=== PATIENT | female | born 1960 | race Caucasian/White ===

== ENCOUNTER 2017-10-28 17:40 | Inpatient (IN) | payer BC ==
[2017-10-28] MEDS ORDERED: NALOXONE 0.4 MG/ML 1 ML VIAL IV PRN (18:32)
[2017-10-28] MEDS ORDERED: MORPHINE SULFATE 4 MG/ML SYRINGE IV PRN (18:32)
[2017-10-28] MEDS ORDERED: SODIUM CHLORIDE 0.9% 1,000 ML IV STA (18:32)
[2017-10-28] MEDS ORDERED: ACETAMINOPHEN TAB 325 MG TAB PO PRN (18:32)
--- NOTE | 2017-10-28 18:35 | ED ---
General Adult HPI - General Chief complaint: Abdominal Pain Stated complaint: appendicitis Time Seen by Provider: 10/28/17 18:06 Source: patient, RN notes reviewed Mode of arrival: ambulatory Limitations: no limitations - History of Present Illness Initial comments: Patient's a 57-year-old female presented to the emergency room by EMS transfer from [facility] for a appendicitis. Patient has had some discomfort for a few days but greatly increased last night at 9 PM. Went to the hospital this afternoon have a CT performed which didn't show evidence for acute appendicitis. Patient did have 14,000 white count. Patient's currently comfortable at this time was given Zosyn [facility]. Patient denies any recent fever, chills, shortness of breath, chest pain, back pain, abdominal pain , nausea or vomiting, numbness or tingling, headaches or visual changes, or any other complaints. - Related Data Home Medications Medication Instructions Recorded Confirmed Aspirin [Adult Low Dose Aspirin EC] 81 mg PO DAILY 10/28/17 10/28/17 Multivitamins, Thera [Multivitamin 1 tab PO DAILY 10/28/17 10/28/17 (formulary)] Naproxen Sodium [Aleve] 220 mg PO Q12HR PRN 10/28/17 10/28/17 [place]-3 Fatty Acids/Fish Oil [Fish 1 cap PO DAILY 10/28/17 10/28/17 Oil 1,000 mg Softgel] Allergies Allergy/AdvReac Type Severity Reaction Status Date / Time No Known Allergies Allergy Unverified 10/28/17 17:50 Review of Systems ROS Statement: Those systems with pertinent positive or pertinent negative responses have been documented in the HPI. ROS Other: All systems not noted in ROS Statement are negative. Past Medical History Past Medical History: No Reported History History of Any Multi-Drug Resistant Organisms: None Reported Past Surgical History: Hysterectomy Past Psychological History: No Psychological Hx Reported Smoking Status: Never smoker Past Alcohol Use History: None Reported Past Drug Use History: None Reported General Exam - General Exam Comments Initial Comments: General: The patient is awake and alert, in no distress, and does not appear acutely ill. Eye: Extra-ocular movements are intact. No nystagmus. There is normal conjunctiva bilaterally. No signs of icterus. Ears, nose, mouth and throat: There are moist mucous membranes and no oral lesions. Neck: The neck is supple, there is no tenderness or JVD. Cardiovascular: There is a regular rate and rhythm. No murmur, rub or gallop is appreciated. Respiratory: Lungs are clear to auscultation, respirations are non-labored, breath sounds are equal. No wheezes, stridor, rales, or rhonchi. Gastrointestinal: Soft on Palpation. Patient Does Have Mild Tenderness Upper Quadrants and Increased Tenderness in the Right Lower Quadrant on Exam. No Rebound. Mild right-sided CVA tenderness. Musculoskeletal: Normal ROM, no tenderness. Sensation intact. Strength 5/5. Pulses equal bilaterally 2+. Neurological: A&O x 3. CN II-XII intact, There are no obvious motor or sensory deficits. Coordination appears grossly intact. Speech is normal. Skin: Skin is warm and dry and no rashes or lesions are noted. Psychiatric: Cooperative, appropriate mood & affect, normal judgment. Limitations: no limitations Course Vital Signs 10/28/17 17:45 Temperature 98.3 F Pulse Rate 75 Respiratory 20 Rate Blood Pressure 135/64 O2 Sat by Pulse 99 Oximetry Medical Decision Making - Medical Decision Making Computed tomography scan from outpatient facility does show an etc. dilated up to proximal and 12 mm in diameter. Wall thickening. There is fluid within the lumen as well as calcified appendicolith. There is a periapical seal stranding. No abscess. His labs reviewed and does show 14,000 white count from out side facility. Case was discussed in detail with on-call surgeon Dr. Esparza who will admit the patient with plans go to the OR in the morning. Continue antibiotics at this time. Patient will remain nothing by mouth. Disposition Clinical Impression: Acute appendicitis Disposition: ADMITTED IP TO THIS HOSP Condition: Good Is patient prescribed a controlled substance at d/c from ED?: No Referrals: Niraj Stern MD [Primary Care Provider] - 1-2 days Time of Disposition: 18:31
[2017-10-28] MEDS ORDERED: ONDANSETRON 4 MG/2 ML VIAL IVP PRN (19:20)
[2017-10-28 19:48] VITALS: BMI 30.9
[2017-10-28 19:49] LABS: Basophils % (A) 0 %; Eosinophils # (A) 0.1 k/uL (0-0.7); Eosinophils % (A) 1 %; HCT 39.8 % (34.0-46.0); HGB 13.3 gm/dL (11.4-16.0); Lymphocytes % (A) 17 %; MCH 32.4 pg (25.0-35.0); MCHC 33.3 g/dL (31.0-37.0); MCV 97.2 fL (80.0-100.0); Monocytes # (A) 0.9 k/uL (0-1.0); Monocytes % (A) 7 %; Neutrophils # (A) 9.1 k/uL (1.3-7.7); Neutrophils % (A) 74 %; Platelet Count 235 k/uL (150-450); RDW 11.8 % (11.5-15.5); WBC 12.2 k/uL (3.8-10.6)
[2017-10-28 20:05] LABS: Albumin 4.4 g/dL (3.5-5.0); Calcium 9.3 mg/dL (8.4-10.2); Potassium 4.4 mmol/L (3.5-5.1); Total Bilirubin 1.8 mg/dL (0.2-1.3); Total Protein 7.5 g/dL (6.3-8.2)
[2017-10-29] MEDS: PIPERACILLIN-TAZOBACTAM 3.375 GM in DEXTROSE/WATER 1 50ML.BAG IVPB SCH ×3 (00:30→16:07)
[2017-10-29 06:44] LABS: Basophils % (A) 0 %; Eosinophils % (A) 0 %; HCT 36.7 % (34.0-46.0); HGB 11.9 gm/dL (11.4-16.0); Lymphocytes # (A) 1.3 k/uL (1.0-4.8); Lymphocytes % (A) 9 %; MCHC 32.5 g/dL (31.0-37.0); MCV 98.6 fL (80.0-100.0); Mean Platelet Volume 7.2; Monocytes % (A) 7 %; Neutrophils # (A) 12.3 k/uL (1.3-7.7); Neutrophils % (A) 83 %; Platelet Count 219 k/uL (150-450); RBC 3.72 m/uL (3.80-5.40); RDW 11.9 % (11.5-15.5); WBC 14.9 k/uL (3.8-10.6)
[2017-10-29 06:54] LABS: Albumin 3.6 g/dL (3.5-5.0); Calcium 8.7 mg/dL (8.4-10.2); Potassium 4.6 mmol/L (3.5-5.1); Total Bilirubin 2.1 mg/dL (0.2-1.3); Total Protein 6.1 g/dL (6.3-8.2)
[2017-10-29] MEDS ORDERED: ONDANSETRON 4 MG/2 ML VIAL IVP ONE ×2 (07:40→09:40)
[2017-10-29] MEDS ORDERED: NEOSTIGMINE 1 MG/ML 10 ML VIAL ONE (08:10)
[2017-10-29] MEDS ORDERED: GLYCOPYRROLATE 0.2 MG/ML 2 ML VIAL ONE (08:10)
[2017-10-29] MEDS ORDERED: ROCURONIUM BROMIDE 10 MG/ML 10 ML VIAL IV ONE (08:10)
[2017-10-29] MEDS ORDERED: DEXAMETHASONE SOD PHOS (MDV) 100 MG/10 ML VIAL ONE (08:10)
[2017-10-29] MEDS ORDERED: PROPOFOL 10 MG/ML 20 ML VIAL IV ONE (08:10)
[2017-10-29] MEDS ORDERED: fentaNYL (PF) 50 MCG/ML 2 ML AMP ONE (08:10)
[2017-10-29] MEDS ORDERED: MIDAZOLAM 2 MG/2 ML VIAL ONE (08:10)
[2017-10-29] MEDS ORDERED: IV FLUID CONTINUATION 1,000 ML IV ONE (08:10)
[2017-10-29] MEDS ORDERED: LIDOCAINE 1% INJ 10MG/ML (20 ML MDV) ONE (08:10)
[2017-10-29] MEDS ORDERED: BUPIVACAIN-EPI 0.25%-1:200,000 30 ML VIAL SQ ONE (08:29)
[2017-10-29] MEDS ORDERED: LACTATED RINGERS 1,000 ML IV ONE ×2 (08:46→08:51)
[2017-10-29] MEDS ORDERED: traMADol 50 MG TAB PO PRN (08:51)
[2017-10-29] MEDS ORDERED: HYDROcodone/APAP 5-325MG 1 EACH TAB PO PRN (08:51)
[2017-10-29] MEDS ORDERED: HYDROmorphone 1 MG/ML 1 ML SYRINGE IVP PRN (08:51)
[2017-10-29] MEDS ORDERED: ONDANSETRON 4 MG/2 ML VIAL IVP PRN (08:51)
[2017-10-29] MEDS ORDERED: NALOXONE 0.4 MG/ML 1 ML VIAL IV PRN (08:51)
[2017-10-29] MEDS ORDERED: fentaNYL (PF) 50 MCG/ML 2 ML AMP IVP ONE ×2 (09:14→09:29)
--- NOTE | 2017-10-29 09:54 | P.OP ---
Date of Procedure: 10/29/17 Preoperative Diagnosis: Acute appendicitis Postoperative Diagnosis: Acute appendicitis Procedure(s) Performed: Laparoscopic appendectomy Anesthesia: AUGUSTIN Surgeon: Luis Esparza Estimated Blood Loss (ml): 5 Pathology: other (Appendix) Condition: stable Disposition: PACU Description of Procedure: The patient's placed on the operating table in the supine position. The patient received general anesthesia. The abdomen was prepped and draped in the usual sterile fashion. The skin was anesthetized 1% local Xylocaine at the trocar sites. Using an 11 blade the skin was incised at the umbilicus. The umbilicus was grasped with a Baxter clamp and then a Veress needle was placed into the peritoneal cavity. Position of the Veress needle was confirmed with positive drop test. After adequate insufflation a 5 mm trocar was placed into the peritoneal cavity. The abdomen was further insufflated. And then the laparoscope was placed in the peritoneal cavity. Next a 5 mm trocar was placed in the midline suprapubic position. And then a 10 mm trocar was placed in the midline epigastric position. The patient was rotated with the right side up and in Trendelenburg. The appendix was visualized. The appendix appeared to be inflamed. There was evidence of patchy necrosis. The appendix was grasped and then using the Harmonic scissors the mesoappendix was divided. A PDS Endoloop was then placed around the base of the appendix. And then the appendix was divided using Harmonic scissors. The appendix was placed into an Endo Catch and brought out through the 10 mm trocar site. The abdomen was irrigated. There is no bleeding seen. The trochars withdrawn. The skin was closed interrupted 3-0 Monocryl suture. Dermabond dressing was applied. Patient was sent to recovery room in stable condition.
[2017-10-29] MEDS: KETOROLAC 30 MG/ML 1 ML VIAL IVP SCH ×3 (14:15→21:01)
--- NOTE | 2017-10-29 15:54 | P.CONS ---
History of Present Illness - Reason for Consult Consult date: 10/29/17 Medical management - Chief Complaint Abdominal pain and acute appendicitis - History of Present Illness Patient is a 57-year-old female without significant past history except osteoarthritis was initially presented to [facility] with complaints of right lower quadrant abdominal pain which has been getting worse for the past 1 week. Patient had worsening symptoms since 9 PM on 10/27/2017 and presented to [facility] initially. CT of abdomen pelvis today shows some evidence of acute appendicitis. Patient was subsequently transferred to [facility] for further evaluation by surgery. Patient was given a dose of Zosyn at [facility]. Patient denies any recent fever, chills, shortness of breath, chest pain, back pain, numbness or tingling, headaches or visual changes, or any other complaints. Patient did have diarrhea one week prior to these symptoms. Diarrhea has resolved about one week ago. Laboratory data and imaging studies from [facility] were reviewed. Review of Systems Constitutional: Patient denies any fever or chills . No generalized weakness or weight loss. Abdomen: Patient denied nausea vomiting and diarrhea and abdominal pain. Cardiovascular: Patient denies any chest pain or short of breath no palpitations. Respiratory: patient denied any cough is from production. No shortness of breath Neurologic: Patient denied any numbness or tingling headache. Musculoskeletal: Patient denies any complaints of joint swelling or deformity. Skin: Negative Psychiatric: Negative Endocrine: No heat or cold intolerance. No recent weight gain. Genitourinary: No dysuria or hematuria. All other 14 point ROS negative except the aboves Past Medical History Past Medical History: No Reported History History of Any Multi-Drug Resistant Organisms: None Reported Past Surgical History: Hysterectomy Additional Past Surgical History / Comment(s): Finger nail removed. Past Anesthesia/Blood Transfusion Reactions: No Reported Reaction Past Psychological History: No Psychological Hx Reported Smoking Status: Never smoker Past Alcohol Use History: None Reported Past Drug Use History: None Reported - Past Family History Father Family Medical History: Diabetes Mellitus Additional Family Medical History / Comment(s): Heart attack with stents. Mother Family Medical History: Cancer Additional Family Medical History / Comment(s): Colon cancer Medications and Allergies Home Medications Medication Instructions Recorded Confirmed Type Aspirin [Adult Low Dose Aspirin EC] 81 mg PO DAILY 10/28/17 10/28/17 History Multivitamins, Thera [Multivitamin 1 tab PO DAILY 10/28/17 10/28/17 History (formulary)] Naproxen Sodium [Aleve] 220 mg PO Q12HR PRN 10/28/17 10/28/17 History [place]-3 Fatty Acids/Fish Oil [Fish 1 cap PO DAILY 10/28/17 10/28/17 History Oil 1,000 mg Softgel] Allergies Allergy/AdvReac Type Severity Reaction Status Date / Time No Known Allergies Allergy Unverified 10/28/17 19:49 Physical Exam Vitals: Vital Signs Temp Pulse Pulse Pulse Pulse Resp BP 10/29/17 14:10 97.7 F 91 17 10/29/17 12:53 79 16 10/29/17 11:45 83 16 10/29/17 11:15 84 16 10/29/17 10:45 80 14 10/29/17 10:30 82 14 10/29/17 10:15 77 14 10/29/17 10:00 99.5 F 76 14 10/29/17 09:35 74 16 10/29/17 09:20 72 16 10/29/17 09:05 110 H 16 10/29/17 08:54 97.0 F L 64 18 10/29/17 07:21 98.9 F 86 18 10/29/17 07:00 98.9 F 86 10/29/17 00:00 98.6 F 89 18 10/28/17 20:02 104 H 18 10/28/17 19:00 98.3 F 83 20 122/56 10/28/17 18:47 97.9 F 104 H 16 10/28/17 17:45 98.3 F 75 20 135/64 BP Pulse Ox 10/29/17 14:10 107/67 94 L 10/29/17 12:53 103/68 97 10/29/17 11:45 101/63 97 10/29/17 11:15 102/67 95 10/29/17 10:45 91/57 97 10/29/17 10:30 99/63 98 10/29/17 10:15 94/60 98 10/29/17 10:00 92/57 98 10/29/17 09:35 99/51 97 10/29/17 09:20 114/57 100 10/29/17 09:05 102/58 97 10/29/17 08:54 120/58 94 L 10/29/17 07:21 102/66 96 10/29/17 07:00 102/66 96 10/29/17 00:00 103/65 97 10/28/17 20:02 10/28/17 19:00 99 10/28/17 18:47 151/85 10/28/17 17:45 99 Intake and Output 10/29/17 10/29/17 10/29/17 06:59 14:59 22:59 Intake Total 0 1100 Output Total 5 Balance 0 1095 Intake: IV 1100 Oral 0 Output: Estimated Blood Loss 5 Other: Voiding Method Toilet # Voids 1 1 # Bowel Movements 1 PHYSICAL EXAMINATION: Patient is lying in the bed comfortably, no acute distress, awake alert and oriented.. HEENT: Normocephalic. Neck is supple. Pupils reactive. Nostrils clear. Oral cavity is moist. Ears reveal no drainage. Neck reveals no JVD, carotid bruits, or thyromegaly. CHEST EXAMINATION: Trachea is central. Symmetrical expansion. Lung garvey clear to auscultation and percussion. CARDIAC: Normal S1, S2 with no gallops. No murmurs ABDOMEN: Soft. Bowel sounds normal. No organomegaly. No abdominal bruits. Extremities: reveal no edema. No clubbing or cyanosis Neurologically awake, alert, oriented x3 with well-coordinated movements. No focal deficits noted Skin: No rash or skin lesions. Psychiatric: Coperative. Nonsuicidal Musculoskeletal: No joint swelling or deformity. Normal range of motion. Results CBC & Chem 7: 10/29/17 06:14 10/29/17 06:14 Labs: Abnormal Lab Results - Last 24 Hours (Table) 10/28/17 10/28/17 10/29/17 Range/Units 19:30 19:30 06:14 WBC 12.2 H 14.9 H (3.8-10.6) k/uL RBC 3.72 L (3.80-5.40) m/uL Neutrophils # 9.1 H 12.3 H (1.3-7.7) k/uL Creatinine (0.52-1.04) mg/dL Glucose 103 H (74-99) mg/dL Total Bilirubin 1.8 H (0.2-1.3) mg/dL Total Protein (6.3-8.2) g/dL 10/29/17 Range/Units 06:14 WBC (3.8-10.6) k/uL RBC (3.80-5.40) m/uL Neutrophils # (1.3-7.7) k/uL Creatinine 1.18 H (0.52-1.04) mg/dL Glucose 112 H (74-99) mg/dL Total Bilirubin 2.1 H (0.2-1.3) mg/dL Total Protein 6.1 L (6.3-8.2) g/dL Assessment and Plan Assessment: Acute appendicitis. Status post laparoscopic appendectomy Osteoarthritis DVT prophylaxis with Lovenox. Plan: Patient will be continued on pain medications and bowel regimen. Continue with IV fluids and antibiotics in the form of Zosyn. Follow up closely and further recommendations based on the clinical course. Discussed with her at bedside in detail. Thank you for your consult Time with Patient: Greater than 30
[2017-10-29] MEDS: ENOXAPARIN 40 MG/0.4 ML SYRINGE SQ SCH (16:07)
--- NOTE | 2017-10-29 22:56 | P.CONS ---
History of Present Illness - Reason for Consult Consult date: 10/29/17 - Chief Complaint Abdominal pain - History of Present Illness Pleasant 57-year-old female relates to a history only of nephrolithiasis and 2 pregnancies relates that she's otherwise been healthy but several days before admission developed crampy abdominal pain. She also had a bout of significant diarrhea and felt quite poorly. She modified her diet a bit and continue to try to go to work. On the day of presentation to the emergency center by her home she got up and went to work. [place] very poorly. She had significant abdominal discomfort although she relates that is not sharp or stabbing but it was progressive. He has noted she has a history of nephrolithiasis and is used to a certain type of intra-abdominal pain. The silver was quite different. However she did notice a symptoms of an infection and she started to have fever and chills in counseling presented to her local emergency center. Because of her significant right lower quadrant tenderness CT scanning was performed showing evidence of abnormal appendix but no josesito rupture. Because of suspected appendicitis she was transferred to our facility. She was seen by surgery and is now status post appendectomy with visualized evidence of ischemic change to the appendix at the time of its removal. She is feeling somewhat better. She is actually had a bowel movement. Her diet being advanced. She's having no further fevers and chills. Lipedema discharge tomorrow but a leukocytosis was noted. Review of Systems HEENT:Denies headache or acute visual change. Denies sinus or mouth discomforts. Denies neck stiffness or pain. Denies significant oral cavity pain. Denies difficulty on swallowing. Lungs: Denies significant shortness of breath, cough, sputum production, or hemoptysis. Cardiovascular: Denies significant shortness of breath, chest pain, chest wall pain, orthopnea, dyspnea on exertion, syncope Gastrointestinal: As per the HPI Musculoskeletal: denies significant myalgias or arthralgias. No new joint swelling. Denies new back pain. Skin: Denies new rash or lesions. No new ulcers or wounds are related.. Neuro: Denies headache or visual change. Denies any new onset weakness or difficulty with ambulation. Denies falls or seizures. Psychiatric:Denies anxiety or depression. Endocrine: Denies significant fatigue, denies significant weight loss or weight gain. Past Medical History Past Medical History: No Reported History Additional Past Medical History / Comment(s): Nephrolithiasis denies diabetes hypertension heart disease or other medical illnesses History of Any Multi-Drug Resistant Organisms: None Reported Past Surgical History: Hysterectomy Additional Past Surgical History / Comment(s): Finger nail removed. Past Anesthesia/Blood Transfusion Reactions: No Reported Reaction Past Psychological History: No Psychological Hx Reported Additional Psychological History / Comment(s): lives with her . Employed as a outreach and education social worker. Adult children live out of town. Elderly parents live next door and suffer from dementia and required care. Lifelong nonsmoker. No alcohol or recreational drug use. No experience. No recent international travel Smoking Status: Never smoker Past Alcohol Use History: None Reported Past Drug Use History: None Reported - Past Family History Father Family Medical History: Diabetes Mellitus Additional Family Medical History / Comment(s): Heart attack with stents. Mother Family Medical History: Cancer Additional Family Medical History / Comment(s): Colon cancer Medications and Allergies Home Medications and Allergies Comment(s): Current Medications Acetaminophen (Tylenol Tab) 650 mg PO Q6HR PRN PRN Reason: Mild Pain or Fever > 100.5 Last Admin: 10/28/17 20:14 Dose: 650 mg Hydrocodone Bitart/Acetaminophen ([place] 5-325) 2 each PO Q6HR PRN PRN Reason: Moderate to Severe Pain Enoxaparin Sodium (Lovenox) 40 mg SQ DAILY [facility] Last Admin: 10/29/17 16:07 Dose: 40 mg Hydromorphone HCl (Dilaudid) 0.5 mg IVP Q3HR PRN PRN Reason: Moderate to Severe Pain Piperacillin/Tazobactam/ (Dextrose 3.375 gm/ IV Solution) 50 mls @ 12.5 mls/hr IVPB Q8HR [facility] Last Admin: 10/29/17 16:07 Dose: 12.5 mls/hr Ketorolac Tromethamine (Toradol) 30 mg IVP Q6H [facility] Stop: 10/31/17 03:01 Last Admin: 10/29/17 21:01 Dose: 30 mg Metoclopramide HCl (Reglan) 10 mg IVP Q6H PRN PRN Reason: Nausea And Vomiting Morphine Sulfate (Morphine Sulfate (Inj)) 4 mg IV Q4HR PRN PRN Reason: Severe Pain Last Admin: 10/29/17 00:30 Dose: 4 mg Naloxone HCl (Narcan) 0.2 mg IV Q2M PRN PRN Reason: Opioid Reversal Ondansetron HCl (Zofran) 4 mg IVP Q8HR PRN PRN Reason: Nausea And Vomiting Tramadol HCl (Ultram) 50 mg PO Q6H PRN PRN Reason: Mild to Moderate Pain Home Medications Medication Instructions Recorded Confirmed Type Aspirin [Adult Low Dose Aspirin EC] 81 mg PO DAILY 10/28/17 10/28/17 History Multivitamins, Thera [Multivitamin 1 tab PO DAILY 10/28/17 10/28/17 History (formulary)] Naproxen Sodium [Aleve] 220 mg PO Q12HR PRN 10/28/17 10/28/17 History [place]-3 Fatty Acids/Fish Oil [Fish 1 cap PO DAILY 10/28/17 10/28/17 History Oil 1,000 mg Softgel] Allergies Allergy/AdvReac Type Severity Reaction Status Date / Time No Known Allergies Allergy Unverified 10/28/17 19:49 Physical Exam Vitals: Vital Signs Temp Pulse Pulse Pulse Resp BP Pulse Ox 10/29/17 14:10 97.7 F 91 17 107/67 94 L 10/29/17 12:53 79 16 103/68 97 10/29/17 11:45 83 16 101/63 97 10/29/17 11:15 84 16 102/67 95 10/29/17 10:45 80 14 91/57 97 10/29/17 10:30 82 14 99/63 98 10/29/17 10:15 77 14 94/60 98 10/29/17 10:00 99.5 F 76 14 92/57 98 10/29/17 09:35 74 16 99/51 97 10/29/17 09:20 72 16 114/57 100 10/29/17 09:05 110 H 16 102/58 97 10/29/17 08:54 97.0 F L 64 18 120/58 94 L 10/29/17 07:21 98.9 F 86 18 102/66 96 10/29/17 07:00 98.9 F 86 102/66 96 10/29/17 00:00 98.6 F 89 18 103/65 97 Intake and Output 10/29/17 10/29/17 10/29/17 06:59 14:59 22:59 Intake Total 0 1100 Output Total 5 Balance 0 1095 Intake: IV 1100 Oral 0 Output: Estimated Blood Loss 5 Other: Voiding Method Toilet # Voids 1 1 1 # Bowel Movements 1 Pleasant 57-year-old woman not in distress HEENT: Anicteric conjunctiva are pink and moist nasal mucosa grossly intact without significant lesions, there is no thrush. Neck: The neck is supple without significant lymphadenopathy or thyromegaly. Lungs: Good bilateral air entry without significant crackles or wheezing. There is no significant bronchial sounds. There is no egophony or dullness. Heart: Regular rate and rhythm with an audible S1-S2, no S3 no S4. There is no significant murmur click or rub, PMI was nondisplaced. Abdomen: Positive bowel sounds , the abdomen is soft but continues to have significant tenderness especially in the right lower quadrant, the abdomen is not rigid, some rebound tenderness is still noted. No hepatosplenomegaly is noted Extremities: The upper extremities have excellent pulses they are symmetric, no significant petechiae or telangiectasia. No splinter hemorrhages were noted. The lower extremities are free from significant edema. The peripheral pulses were 2+ and symmetric. Neuro: Awake alert oriented to person place and time. There are no acute new gross focal sensory motor deficits. Results Results: Laboratory Results WBC 14.9 k/uL (3.8-10.6) H 10/29/17 06:14 RBC 3.72 m/uL (3.80-5.40) L 10/29/17 06:14 Hgb 11.9 gm/dL (11.4-16.0) 10/29/17 06:14 Hct 36.7 % (34.0-46.0) 10/29/17 06:14 MCV 98.6 fL (80.0-100.0) 10/29/17 06:14 MCH 32.0 pg (25.0-35.0) 10/29/17 06:14 MCHC 32.5 g/dL (31.0-37.0) 10/29/17 06:14 RDW 11.9 % (11.5-15.5) 10/29/17 06:14 Plt Count 219 k/uL (150-450) 10/29/17 06:14 Neutrophils % 83 % 10/29/17 06:14 Lymphocytes % 9 % 10/29/17 06:14 Monocytes % 7 % 10/29/17 06:14 Eosinophils % 0 % 10/29/17 06:14 Basophils % 0 % 10/29/17 06:14 Neutrophils # 12.3 k/uL (1.3-7.7) H 10/29/17 06:14 Lymphocytes # 1.3 k/uL (1.0-4.8) 10/29/17 06:14 Monocytes # 1.0 k/uL (0-1.0) 10/29/17 06:14 Eosinophils # 0.0 k/uL (0-0.7) 10/29/17 06:14 Basophils # 0.0 k/uL (0-0.2) 10/29/17 06:14 Sodium 140 mmol/L (137-145) 10/29/17 06:14 Potassium 4.6 mmol/L (3.5-5.1) 10/29/17 06:14 Chloride 106 mmol/L (98-107) 10/29/17 06:14 Carbon Dioxide 27 mmol/L (22-30) 10/29/17 06:14 Anion Gap 7 mmol/L 10/29/17 06:14 BUN 15 mg/dL (7-17) 10/29/17 06:14 Creatinine 1.18 mg/dL (0.52-1.04) H 10/29/17 06:14 Est GFR (CKD-EPI)AfAm 60 (>60 ml/min/1.73 sqM) 10/29/17 06:14 Est GFR (CKD-EPI)NonAf 52 (>60 ml/min/1.73 sqM) 10/29/17 06:14 Glucose 112 mg/dL (74-99) H 10/29/17 06:14 Calcium 8.7 mg/dL (8.4-10.2) 10/29/17 06:14 Total Bilirubin 2.1 mg/dL (0.2-1.3) H 10/29/17 06:14 AST 22 U/L (14-36) 10/29/17 06:14 ALT 26 U/L (9-52) 10/29/17 06:14 Alkaline Phosphatase 41 U/L (38-126) 10/29/17 06:14 Total Protein 6.1 g/dL (6.3-8.2) L 10/29/17 06:14 Albumin 3.6 g/dL (3.5-5.0) 10/29/17 06:14 CBC & Chem 7: 10/29/17 06:14 10/29/17 06:14 Labs: Abnormal Lab Results - Last 24 Hours (Table) 10/29/17 10/29/17 Range/Units 06:14 06:14 WBC 14.9 H (3.8-10.6) k/uL RBC 3.72 L (3.80-5.40) m/uL Neutrophils # 12.3 H (1.3-7.7) k/uL Creatinine 1.18 H (0.52-1.04) mg/dL Glucose 112 H (74-99) mg/dL Total Bilirubin 2.1 H (0.2-1.3) mg/dL Total Protein 6.1 L (6.3-8.2) g/dL Assessment and Plan (1) Acute appendicitis Narrative/Plan: 57-year-old female presents to her local hospital was negative and abdominal pain and was transferred to our facility with abnormal computed tomography scan and evaluation for surgical intervention. She was seen by surgery and taken to the operative room this morning for the elective appendectomy. Patient tolerated the surgery well and started to show improvement. Ischemic changes was noted to the appendix the time of its removal. The patient fortunately is now showing marked improvement but did have a leukocytosis which is not unexpected given the acuity of her symptoms. She is now had surgical intervention and receiving appropriate antibiotic therapy with Zosyn. If she is considerably improved in the morning her white count has shown improvement she may be discharged home if she is tolerating diet to complete a course of Augmentin at that time. Current Visit: Yes Status: Acute Code(s): K35.80 - UNSPECIFIED ACUTE APPENDICITIS SNOMED Code(s): 26716295
[2017-10-30] MEDS: PIPERACILLIN-TAZOBACTAM 3.375 GM in DEXTROSE/WATER 1 50ML.BAG IVPB SCH ×3 (00:01→14:53)
[2017-10-30] MEDS: KETOROLAC 30 MG/ML 1 ML VIAL IVP SCH ×4 (02:02→20:23)
[2017-10-30 07:51] LABS: Basophils % (A) 0 %; Eosinophils % (A) 0 %; HGB 11.6 gm/dL (11.4-16.0); Lymphocytes # (A) 1.5 k/uL (1.0-4.8); Lymphocytes % (A) 14 %; MCH 32.4 pg (25.0-35.0); MCHC 32.2 g/dL (31.0-37.0); MCV 100.8 fL (80.0-100.0); Mean Platelet Volume 7.3; Monocytes # (A) 0.5 k/uL (0-1.0); Monocytes % (A) 5 %; Neutrophils # (A) 8.4 k/uL (1.3-7.7); Neutrophils % (A) 80 %; Platelet Count 176 k/uL (150-450); RBC 3.57 m/uL (3.80-5.40); WBC 10.6 k/uL (3.8-10.6)
[2017-10-30] MEDS: ENOXAPARIN 40 MG/0.4 ML SYRINGE SQ SCH (08:12)
--- NOTE | 2017-10-30 11:39 | P.PN ---
Progress Note - Text Progress Note Date: 10/30/17 Patient's postoperative day 1 from laparoscopic appendectomy for acute appendicitis. She was doing well overnight. However this morning she has nausea. On exam her vital signs are stable. Her abdomen soft. Incision site is clean dry tach. Status post laparoscopic appendectomy for acute appendicitis. Patient did receive IV antibiotics. We dysphagia discharged home in the a.m.
[2017-10-30 15:07] VITALS: RESP 16
[2017-10-30] MEDS: METOCLOPRAMIDE 5 MG/ML 2 ML VIAL IVP PRN ×2 (16:57→22:53)
[2017-10-31] MEDS: PIPERACILLIN-TAZOBACTAM 3.375 GM in DEXTROSE/WATER 1 50ML.BAG IVPB SCH ×2 (02:12→09:01)
[2017-10-31] MEDS: KETOROLAC 30 MG/ML 1 ML VIAL IVP SCH (03:25)
[2017-10-31] MEDS: METOCLOPRAMIDE 5 MG/ML 2 ML VIAL IVP PRN (04:43)
[2017-10-31] MEDS: ENOXAPARIN 40 MG/0.4 ML SYRINGE SQ SCH (08:58)
--- NOTE | 2017-10-31 09:22 | P.DS ---
Providers Date of admission: 10/29/17 10:55 Expected date of discharge: 10/31/17 Attending physician: Luis Esparza Consults: 10/29/17 08:51 Consult Physician Routine Consulting Provider: Doe Pugh Consult Reason/Comments: medical manage Do you want consulting provider notified?: Yes 10/29/17 08:56 Consult Physician Routine Consulting Provider: Jarvis Smith Consult Reason/Comments: Necrotic appendicitis Do you want consulting provider notified?: Yes Primary care physician: [facility] Course: 57-year-old female who was transferred from [place] via EMS system for persistent right upper and lower quadrant abdominal pain. CAT scan was performed showing evidence of an abnormal appendix but no josesito rupture. Was noted to have an elevated white count of 14. Also stated that she was experiencing loose stools. Denied any fever chills. Given the above clinical presentation patient was seen by surgery underwent October 29 laparoscopic appendectomy for acute appendicitis Infectious disease consultation was obtained patient was seen by Dr. Burt with recommendations patient was placed on Zosyn the white count on the was 10.6 postop continue to experience frequent watery loose stools stool for C. diff was obtained was negative Date of discharge patient was up ambulatory on the unit denied chest pain dizziness lightheadedness shortness of breath surgical dressing sites were dry reported no nausea vomiting pain medication effective for pain control Impression discharge diagnoses Present on admission right upper quadrant abdominal pain suspect due to a cute appendicitis Computed tomography scan abdomen pelvis showed abnormal appendix Present on admission leukocytosis Status post October 29 laparoscopic appendectomy for acute appendicitis Frequent loose stooling with C. diff negative The above impression and plan of care have been discussed and directed by signing physician. Edith Partida nurse practitioner acting as scribe for signing physician. Patient Condition at Discharge: Good Plan - Discharge Summary Discharge Rx Participant: Yes New Discharge Prescriptions: New Amoxic-Pot Clav 875-125Mg [Augmentin 875-125] 1 tab PO Q12HR #14 tablet Acetaminophen Tab [Tylenol] 650 mg PO Q6HR PRN tab PRN Reason: Mild Pain Or Fever > 100.5 HYDROcodone/APAP 5-325MG [Taylor 5-325] 1 each PO Q6HR PRN #12 tab PRN Reason: Moderate To Severe Pain Continue [place]-3 Fatty Acids/Fish Oil [Fish Oil 1,000 mg Softgel] 1 cap PO DAILY Aspirin [Adult Low Dose Aspirin EC] 81 mg PO DAILY No Action Naproxen Sodium [Aleve] 220 mg PO Q12HR PRN PRN Reason: Pain Multivitamins, Thera [Multivitamin (formulary)] 1 tab PO DAILY Discharge Medication List Aspirin [Adult Low Dose Aspirin EC] 81 mg PO DAILY 10/28/17 [History] Multivitamins, Thera [Multivitamin (formulary)] 1 tab PO DAILY 10/28/17 [History ] Naproxen Sodium [Aleve] 220 mg PO Q12HR PRN 10/28/17 [History] [place]-3 Fatty Acids/Fish Oil [Fish Oil 1,000 mg Softgel] 1 cap PO DAILY [History] Amoxic-Pot Clav 875-125Mg [Augmentin 875-125] 1 tab PO Q12HR #14 tablet [Rx] Acetaminophen Tab [Tylenol] 650 mg PO Q6HR PRN tab 10/31/17 [Rx] HYDROcodone/APAP 5-325MG [Taylor 5-325] 1 each PO Q6HR PRN #12 tab 10/31/17 [Rx] Follow up Appointment(s)/Referral(s): Niraj Stern MD [Primary Care Provider] - 11/02/17 3:00 pm (Appointment set in [place] office [address] [address] ) Luis Esparza MD [STAFF PHYSICIAN] - 11/03/17 3:10 pm Patient Instructions/Handouts: Laparoscopic Appendectomy (DC) Activity/Diet/Wound Care/Special Instructions: No tub bath for six weeks. Shower daily. No lifting over 10 pounds for the next 4 weeks. May return to work in one week May use ice packs to surgical site. No driving while taking narcotic for pain. Discharge Disposition: HOME SELF-CARE
--- NOTE | 2017-10-31 09:56 | P.PN ---
Subjective Progress Note Date: 10/30/17 Principal diagnosis: Acute appendicitis Patient is a 57-year-old female without significant past history except osteoarthritis was initially presented to [facility] with complaints of right lower quadrant abdominal pain which has been getting worse for the past 1 week. Patient had worsening symptoms since 9 PM on 10/27/2017 and presented to [facility] initially. CT of abdomen pelvis today shows some evidence of acute appendicitis. Patient was subsequently transferred to [facility] for further evaluation by surgery. Patient was given a dose of Zosyn at [facility]. Patient denies any recent fever, chills, shortness of breath, chest pain, back pain, numbness or tingling, headaches or visual changes, or any other complaints. Patient did have diarrhea one week prior to these symptoms. Diarrhea has resolved about one week ago. Laboratory data and imaging studies from [facility] were reviewed. 10/30/2017 Patient is complaining of nausea this morning. Otherwise tolerating liquid data advance as tolerated. Patient did have a small bowel movement. No fever no chills. Leukocytosis is improving. Anticipate discharge next 24 hours with more clinical improvement. Current medications reviewed Objective - Vital Signs Vital signs: Vital Signs Temp 98.2 F 10/31/17 07:00 Pulse 70 10/31/17 07:00 Resp 16 10/31/17 07:00 BP 174/98 10/31/17 07:00 Pulse Ox 97 10/31/17 07:00 Intake & Output 10/30/17 10/31/17 10/31/17 18:59 06:59 18:59 Intake Total 100 137 Balance 100 137 Intake: Oral 100 137 Other: Voiding Method Toilet # Voids 2 2 - Exam PHYSICAL EXAMINATION: Patient is lying in the bed comfortably, no acute distress, awake alert and oriented.. HEENT: Normocephalic. Neck is supple. Pupils reactive. Nostrils clear. Oral cavity is moist. Ears reveal no drainage. Neck reveals no JVD, carotid bruits, or thyromegaly. CHEST EXAMINATION: Trachea is central. Symmetrical expansion. Lung garvey clear to auscultation and percussion. CARDIAC: Normal S1, S2 with no gallops. No murmurs ABDOMEN: Soft. Mild tenderness at the surgical site. Bowel sounds normal. No organomegaly. No abdominal bruits. Extremities: reveal no edema. No clubbing or cyanosis Neurologically awake, alert, oriented x3 with well-coordinated movements. No focal deficits noted Skin: No rash or skin lesions. Psychiatric: Coperative. Nonsuicidal Musculoskeletal: No joint swelling or deformity. Normal range of motion. - Labs CBC & Chem 7: 10/30/17 06:59 10/29/17 06:14 Assessment and Plan Assessment: Acute appendicitis. Status post laparoscopic appendectomy Osteoarthritis DVT prophylaxis with Lovenox. Plan: Patient will be continued on pain medications and bowel regimen. Continue with IV fluids and antibiotics in the form of Zosyn. Follow up closely and further recommendations based on the clinical course. Discussed with her at bedside in detail. Thank you for your consult Time with Patient: Greater than 30
--- NOTE | 2017-10-31 16:10 | P.PN ---
Subjective Progress Note Date: 10/31/17 Principal diagnosis: Acute appendicitis Patient is a 57-year-old female without significant past history except osteoarthritis was initially presented to [facility] with complaints of right lower quadrant abdominal pain which has been getting worse for the past 1 week. Patient had worsening symptoms since 9 PM on 10/27/2017 and presented to [facility] initially. CT of abdomen pelvis today shows some evidence of acute appendicitis. Patient was subsequently transferred to [facility] for further evaluation by surgery. Patient was given a dose of Zosyn at [facility]. Patient denies any recent fever, chills, shortness of breath, chest pain, back pain, numbness or tingling, headaches or visual changes, or any other complaints. Patient did have diarrhea one week prior to these symptoms. Diarrhea has resolved about one week ago. Laboratory data and imaging studies from [facility] were reviewed. 10/30/2017 Patient is complaining of nausea this morning. Otherwise tolerating liquid data advance as tolerated. Patient did have a small bowel movement. No fever no chills. Leukocytosis is improving. Anticipate discharge next 24 hours with more clinical improvement. 10/31/2017 Patient denied any new complaints today. Abdominal soreness is much improved. Patient did have bowel movement. No fever no chills. No other acute overnight issues. Patient is stable to be discharged home. Discharge medications a consultation was done. Current medications reviewed Objective - Vital Signs Vital signs: Vital Signs Temp 98.2 F 10/31/17 07:00 Pulse 70 10/31/17 07:00 Resp 16 10/31/17 07:00 BP 174/98 10/31/17 07:00 Pulse Ox 97 10/31/17 07:00 Intake & Output 10/30/17 10/31/17 10/31/17 18:59 06:59 18:59 Intake Total 100 137 Balance 100 137 Intake: Oral 100 137 Other: Voiding Method Toilet # Voids 2 2 - Exam PHYSICAL EXAMINATION: Patient is lying in the bed comfortably, no acute distress, awake alert and oriented.. HEENT: Normocephalic. Neck is supple. Pupils reactive. Nostrils clear. Oral cavity is moist. Ears reveal no drainage. Neck reveals no JVD, carotid bruits, or thyromegaly. CHEST EXAMINATION: Trachea is central. Symmetrical expansion. Lung garvey clear to auscultation and percussion. CARDIAC: Normal S1, S2 with no gallops. No murmurs ABDOMEN: Soft. Mild tenderness at the surgical site. Bowel sounds normal. No organomegaly. No abdominal bruits. Extremities: reveal no edema. No clubbing or cyanosis Neurologically awake, alert, oriented x3 with well-coordinated movements. No focal deficits noted Skin: No rash or skin lesions. Psychiatric: Coperative. Nonsuicidal Musculoskeletal: No joint swelling or deformity. Normal range of motion. - Labs CBC & Chem 7: 10/30/17 06:59 10/29/17 06:14 Assessment and Plan Assessment: Acute appendicitis. Status post laparoscopic appendectomy Osteoarthritis DVT prophylaxis with Lovenox. Plan: Patient will be continued on pain medications and bowel regimen. Follow-up with primary care physician and surgery at an outpatient.. Follow up closely and further recommendations based on the clinical course. Discussed with her at bedside in detail. Time with Patient: Greater than 30
[2017-11-01 07:18] VITALS: BP 123/71; PULSE 82; TEMP 97.8
== END 2017-10-31 12:35 | disposition home or self-care (01) | DRG 343 ==
LOC: EC 17:40 → 6PED 18:47 → OBSVTOIN 10-29 10:55 → 3SUR 10-30 14:46
PROVIDERS: ADMIT Surgery; ATTEND Surgery
PROC: 0DTJ4ZZ Resection of Appendix, Percutaneous Endoscopic Approach (ICD-10-PCS; principal; 2017-10-29 07:30)
DX: K35.80 Unspecified acute appendicitis (principal); K38.1 Appendicular concretions; M19.91 Primary osteoarthritis, unspecified site; Z79.82 Long term (current) use of aspirin; Z79.899 Other long term (current) drug therapy; Z90.710 Acquired absence of both cervix and uterus; Z87.442 Personal history of urinary calculi; Z83.3 Family history of diabetes mellitus; Z80.0 Family history of malignant neoplasm of digestive organs; Z81.8 Family history of other mental and behavioral disorders; Z82.49 Family history of ischemic heart disease and other diseases of the circulatory system
CPT/HCPCS: 80053; 85025; 87324; 88304; 99285

== ENCOUNTER 2018-10-11 09:31 | Day surgery (SDC) | payer BC ==
[2018-10-05 15:56] VITALS: BMI 29.8
[~2018-10-11 09:31] MED LIST: LACTATED RINGERS 1,000 ML IV SCH
[2018-10-11 10:32] VITALS: TEMP 97.6
[2018-10-11] MEDS ORDERED: LIDOCAINE 1% 20 ML VIAL (10MG/ML) FOR IV START INTRADERMA ONE (10:33)
[2018-10-11] MEDS ORDERED: PROPOFOL 10 MG/ML 20 ML VIAL IV ONE (11:42)
--- NOTE | 2018-10-11 11:59 | P.PCN ---
Date of Procedure: 10/11/18 Procedure(s) Performed: BRIEF HISTORY: Patient is a 58-year-old pleasant female, scheduled for an elective colonoscopy as a part of screening for colorectal neoplasia. She has family history of colon cancer diagnosed in her mother at age 65. PROCEDURE PERFORMED: Colonoscopy With snare polypectomy PREOPERATIVE DIAGNOSIS: SCREENING for colon cancer/family history of colon cancer. IV sedation per Anesthesia. PROCEDURE: After informed consent was obtained, the patient, was brought into the endoscopy unit. IV sedation was administered by Anesthesia under continuous monitoring. Digital rectal examination was normal. Initially the Olympus CF-160 flexible video colonoscope was then inserted in the rectum, gradually advanced into the cecum without any difficulty. Careful examination was performed as the scope was gradually being withdrawn. Ileocecal valve and the appendiceal orifice were visualized and appeared normal. Prep was excellent. Mucosa of the cecum, ascending colon, transverse colon, descending colon, sigmoid colon, and rectum appeared normal. as a 5 mm sessile distal rectal polyp that was removed by snare polypectomy. Retroflexion was performed in the rectum and no lesions were seen. The patient tolerated the procedure well. IMPRESSION: 5 mm distal rectal polyp status post polypectomy Rest of the colon appeared normal RECOMMENDATIONS: Findings of this examination were discussed with the patient as well as a family. she was advised to follow with the biopsy results and have a repeat surveillance colonoscopy in 5 years from now.
[2018-10-11 12:29] VITALS: BP 152/89; PULSE 58; RESP 18
== END 2018-10-11 12:56 | disposition home or self-care (01) ==
LOC: ORWHC2ENDO 09:31
PROVIDERS: ATTEND Internal Medicine Gastroenterology
DX: Z12.11 Encounter for screening for malignant neoplasm of colon (principal); D12.8 Benign neoplasm of rectum; Z80.0 Family history of malignant neoplasm of digestive organs; Z79.82 Long term (current) use of aspirin
CPT/HCPCS: 88305; 45385; J2704

== ENCOUNTER → 2018-10-16 | Outpatient (CLI) | payer BC ==
--- NOTE | 2018-10-16 11:00 | MM ---
Reason for exam: screening (asymptomatic). Last mammogram was performed 5 years ago. History: Patient is postmenopausal. Benign excisional biopsy of the left breast, August 13, 1997. Physical Findings: A clinical breast exam by your physician is recommended on an annual basis and results should be correlated with mammographic findings. MG Screening Mammo w CAD Bilateral CC and MLO view(s) were taken. Prior study comparison: October 01, 2013, bilateral MG screening mammo w CAD. September 29, 2011, bilateral digital screening mammo w/CAD. The breast tissue is heterogeneously dense. This may lower the sensitivity of mammography. New small nodularity left breast. ASSESSMENT: Incomplete: need additional imaging evaluation, BI-RAD 0 RECOMMENDATION: Ultrasound of the left breast. [facility] will attempt to contact patient to return for ultrasound.
== END | disposition home or self-care (01) ==
LOC: RADMAMWWP 07:12
PROVIDERS: ATTEND Family Medicine
DX: Z12.31 Encounter for screening mammogram for malignant neoplasm of breast (principal)
CPT/HCPCS: 77067

== ENCOUNTER → 2018-10-26 | Outpatient (CLI) | payer BC ==
--- NOTE | 2018-10-26 08:23 | USB ---
Reason for exam: additional evaluation requested from abnormal screening. History: Patient is postmenopausal. Benign excisional biopsy of the left breast, August 13, 1997. Physical Findings: Nurse Summary: nodular, moves, questionable scar (nurse kp). US Breast Workup LT Left complete breast ultrasound includes all four quadrants, the retroareolar region and axilla. Finding demonstrates a 1.0 x 0.4 x 0.8cm oval, cystic lesion at 12 o'clock, a 0.6 x 0.3 x 1.1cm oval, hypoechoic lesion at 2 o'clock and a 0.8 x 0.3 x 0.4cm oval, cystic lesion at 12 o'clock. These results were verbally communicated with the patient and result sheet given to the patient on 10/26/18. ASSESSMENT: Probably benign, BI-RAD 3 RECOMMENDATION: Ultrasound of the left breast in 6 months.
== END | disposition home or self-care (01) ==
LOC: RADUSWWP 06:56
PROVIDERS: ATTEND Family Medicine
DX: R92.8 Other abnormal and inconclusive findings on diagnostic imaging of breast (principal)

== ENCOUNTER → 2020-07-29 | Outpatient (CLI) | payer BC ==
--- NOTE | 2020-07-29 13:50 | MM ---
Reason for exam: screening (asymptomatic). Last mammogram was performed 1 year and 9 months ago. History: Patient is postmenopausal. Benign excisional biopsy of the left breast, August 13, 1997. Physical Findings: A clinical breast exam by your physician is recommended on an annual basis and results should be correlated with mammographic findings. MG 3D Screening Mammo W/Cad Bilateral CC and MLO view(s) were taken. Prior study comparison: October 16, 2018, bilateral MG screening mammo w CAD. October 30, 2013, left breast MG work up mamm w CAD LT. October 01, 2013, bilateral MG screening mammo w CAD. The breast tissue is heterogeneously dense. This may lower the sensitivity of mammography. ASSESSMENT: Negative, BI-RAD 1 RECOMMENDATION: Routine screening mammogram of both breasts in 1 year.
== END | disposition home or self-care (01) ==
LOC: RADMAMWWP 10:50
PROVIDERS: ATTEND Pediatrics
DX: Z12.31 Encounter for screening mammogram for malignant neoplasm of breast (principal)
CPT/HCPCS: 77063; 77067

== ENCOUNTER → 2021-06-10 | Outpatient (CLI) | payer BC ==
--- NOTE | 2021-06-10 12:09 | CA ---
Exercise Stress Test Report Name: Keyonna Fisher Exam Date: 06/10/2021 10:37 Exam Location: [facility] Ht (in): 64 Wt (lb): 189 BSA: 1.91 Ordering Phys: Danae Fisher MD Referring Phys: DANAE FISHER,, Technologist: Nico Foster Age: 60 Gender: F : 1960 Procedure CPT: Indications: R07.89 ICD-10 Codes: Patient History: chest pain, high cholesterol, family history Medications: asprin, crestor, vitamin D Meds past 24 hrs: Pretest Chest Pain: STRESS TEST Hank Protocol Exercise Duration (min:sec): 09:[address] Depressions (mm): Angina Score: Pagan Score: Resting HR (bpm): 95 Peak HR (bpm): 158 Resting BP (mmHg): 146 / 92 Peak BP (mmHg): 156 / 85 MPHR: 162 Target HR: 138 % MPHR: 98 METS: 10.3 Total Dose: Peak Dose: Atropine: Double Product: 51783 BP Response: Stress Termination: Reached target heart rate Stress Symptoms: No chest pain or symptoms Stress Summary: ECG ANALYSIS Resting ECG: Stress ECG: CONCLUSIONS Baseline heart rate 76 beats a minute, Baseline blood pressure 146/92 mmHg Baseline twelve-lead EKG shows normal sinus rhythm with normal ST segments Patient exercised on a Hank protocol for 9 minutes achieving a peak heart rate of 156 beats a minute Peak blood pressure 204/85 mmHg No symptoms noted There was no ECG is for ischemia no arrhythmias were noted Impression Good exercise capacity Elevated blood pressures at baseline with hypertensive response Dr. Benjy Ashby MD (Electronically Signed) Final Date: 10 Jun 2021 12:08
== END | disposition home or self-care (01) ==
LOC: RADNMMAIN 09:49
PROVIDERS: ATTEND Pediatrics
DX: I10 Essential (primary) hypertension (principal); R07.9 Chest pain, unspecified
CPT/HCPCS: 93017

== ENCOUNTER → 2021-09-21 | Outpatient (CLI) | payer BC ==
--- NOTE | 2021-09-22 10:47 | MM ---
Reason for Exam: Screening (asymptomatic). Last mammogram was performed 1 year(s) and 2 month(s) ago. Patient History: Menarche at age 15. First Full-Term at age 23. Hysterectomy at age 45. Postmenopausal. Currently using Estrogen, starting at age 61. 08/13/1997, Benign Excisional Biopsy on the left side. Risk Values: Marina 5 year model risk: 1.5%. NCI Lifetime model risk: 7.9%. Prior Study Comparison: 10/30/2013 Left Diagnostic Mammogram, [facility]. 10/16/2018 Bilateral Screening Mammogram, [facility]. 07/29/2020 Bilateral Screening Mammogram, [facility]. Tissue Density: The breast tissue is heterogeneously dense. This may lower the sensitivity of mammography. Findings: Analyzed By CAD. There is no suspicious group of microcalcifications or new suspicious mass in either breast. Overall Assessment: Negative, BI-RAD 1 Management: Screening Mammogram of both breasts in 1 year. A clinical breast exam by your physician is recommended on an annual basis and results should be correlated with mammographic findings. Electronically signed and approved by: Bhavesh Walker DO
== END | disposition home or self-care (01) ==
LOC: RADMAMWWP 15:43
PROVIDERS: ATTEND Pediatrics
DX: Z12.31 Encounter for screening mammogram for malignant neoplasm of breast (principal); Z78.0 Asymptomatic menopausal state
CPT/HCPCS: 77063; 77067

== ENCOUNTER → 2022-11-15 | Outpatient (CLI) | payer BC ==
--- NOTE | 2022-11-16 08:19 | MM ---
Reason for Exam: Screening (asymptomatic). Last mammogram was performed 1 year(s) and 2 month(s) ago. Patient History: Menarche at age 15. First Full-Term at age 23. Hysterectomy at age 45. Postmenopausal. Currently using Estrogen, starting at age 61. 08/13/1997, Benign Excisional Biopsy on the left side. Risk Values: Marina 5 year model risk: 1.5%. NCI Lifetime model risk: 7.7%. Prior Study Comparison: 10/16/2018 Bilateral Screening Mammogram, [facility]. 07/29/2020 Bilateral Screening Mammogram, [facility]. 09/21/2021 Bilateral MG 3D screening mammo w/cad, [facility]. Tissue Density: The breast tissue is heterogeneously dense. This may lower the sensitivity of mammography. Findings: Analyzed By CAD. There is no suspicious group of microcalcifications within either breast. Benign calcification within the right breast. Focal asymmetry demonstrated within the right breast at 12:00 posterior depth. Additional asymmetry demonstrated within the central right breast only in the CC view at posterior depth. Asymmetry demonstrated within the left breast medially only on the CC view at posterior depth. Overall Assessment: Incomplete: need additional imaging evaluation, BI-RAD 0 Management: Diagnostic Mammogram of both breasts. A clinical breast exam by your physician is recommended on an annual basis and results should be correlated with mammographic findings. [facility] will attempt to contact patient to return for supplemental views and ultrasound if indicated. Note on Marina scores and lifetime risk: 1. A Marina score greater than 3% is considered moderate risk. If this is the case, consider specialist referral to assess eligibility for a risk reducing agent. If overall lifetime risk for the development of breast cancer is 20% or higher, the patient may qualify for future screening with alternating mammogram and breast MRI. Electronically signed and approved by: Sivakumar Gong D.O.
== END | disposition home or self-care (01) ==
LOC: RADMAMWWP 16:17
PROVIDERS: ATTEND Pediatrics
DX: Z12.31 Encounter for screening mammogram for malignant neoplasm of breast (principal); Z78.0 Asymptomatic menopausal state
CPT/HCPCS: 77063; 77067

== ENCOUNTER 2024-07-20 10:55 | Day surgery (SDC) | payer BC ==
[~2024-07-20 10:55] MED LIST changes: -LACTATED RINGERS 1,000 ML IV SCH; +LIDOCAINE 1% (10MG/ML) FOR IV START INTRADERMA PRN
[2024-07-20 12:41] VITALS: TEMP 98.5
[2024-07-20] MEDS: IV FLUID CONTINUATION 1,000 ML IV ONE (12:45)
[2024-07-20] MEDS: LACTATED RINGERS 1,000 ML IV SCH (12:50)
[2024-07-20] MEDS ORDERED: PROPOFOL 10 MG/ML 20 ML VIAL IV ONE (13:26)
--- NOTE | 2024-07-20 13:44 | P.PCN ---
Date of Procedure: 07/20/24 Procedure(s) Performed: BRIEF HISTORY: Patient is a 64-year-old pleasant white female scheduled for an elective colonoscopy as a part of screening for by history of colon polyps. She has family history of colon cancer diagnosed in her mother at age 60. PROCEDURE PERFORMED: Colonoscopy. PREOPERATIVE DIAGNOSIS: Screening for history of colon polyps and family history of colon cancer. IV sedation per Anesthesia. PROCEDURE: After informed consent was obtained, the patient, was brought into the endoscopy unit. IV sedation was administered by Anesthesia under continuous monitoring. Digital rectal examination was normal. Initially the Olympus CF-160 flexible video colonoscope was then inserted in the rectum, gradually advanced into the cecum without any difficulty. Careful examination was performed as the scope was gradually being withdrawn. Ileocecal valve and the appendiceal orifice were visualized and appeared normal. Prep was excellent. Mucosa of the cecum, ascending colon, transverse colon, descending colon, sigmoid colon, and rectum appeared normal. Scattered sigmoid diverticulosis. Retroflexion was performed in the rectum and no lesions were seen. The patient tolerated the procedure well. IMPRESSION: Normal-appearing colon from rectum to cecum with no evidence of colorectal neoplasia Scattered sigmoid diverticulosis. RECOMMENDATIONS: Findings of this examination were discussed with the patient as well as her family. She was advised to have repeat screening colonoscopy every 5 years because of the family history of colon cancer.
[2024-07-20 13:54] VITALS: BP 141/81; PULSE 81; RESP 12
== END 2024-07-20 14:37 ==
LOC: ORWHC2ENDO 10:55
PROVIDERS: ATTEND Internal Medicine Gastroenterology
DX: Z12.11 Encounter for screening for malignant neoplasm of colon (principal); K57.30 Diverticulosis of large intestine without perforation or abscess without bleeding; E78.5 Hyperlipidemia, unspecified; Z86.0100 Personal history of colon polyps, unspecified; Z80.0 Family history of malignant neoplasm of digestive organs; Z87.442 Personal history of urinary calculi; Z79.899 Other long term (current) drug therapy
CPT/HCPCS: 45378; J2704